=== PATIENT | male | born 1965 ===

== ENCOUNTER 2017-06-06 09:00 | Emergency (ER) | payer BC ==
--- NOTE | 2017-06-06 09:43 | ED PDOC ---
Arrival/HPI - General Time Seen by Provider: 06/06/17 09:06 Historian: Patient - History of Present Illness Narrative History of Present Illness (Text): 06/06/17 09:43 52 y/o male, pmh including htn/hyperlipidemia/renal stone, nkda, c/o lt. sided abdominal/flank pain started this morning. Cramping and stabbing pain, stated that this feels like his kidney stone pain, no urinary frequency or urgency, no hematuria or dysuria, no nausea or vomiting, no night sweat, no chest pain or shortness of breath, no palpitation, no rash, no other medical or psychological complaints. Past Medical History - Provider Review Nursing Documentation Reviewed: Yes - Past History Past History: Non-Contributing - Infectious Disease Hx of Infectious Diseases: None - Tetanus Immunization Tetanus Immunization: Unknown - Past Medical History Past Medical History: No Previous - Cardiac Hx IN: Yes Hx Hypertension: Yes - Pulmonary Other/Comment: Pt denies - Neurological Hx Migraine: Yes - HEENT Other/Comment: Pt denies - Renal Other/Comment: Pt denies - Endocrine/Metabolic Other/Comment: Pt denies - Hematological/Oncological Other/Comment: Pt denies - Integumentary Other/Comment: Pt denies - Musculoskeletal/Rheumatological Other/Comment: Pt denies - Gastrointestinal Hx Gastroesophageal Reflux: Yes - Genitourinary/Gynecological Other/Comment: Pt denies - Psychiatric Hx Depression: No Hx Emotional Abuse: No Hx Physical Abuse: No Hx Substance Use: No (former) - Past Surgical History Past Surgical History: No Previous - Surgical History Hx Cardiac Catheterization: Yes - Anesthesia Hx Anesthesia: Yes Hx Anesthesia Reactions: No Hx Malignant Hyperthermia: No - Suicidal Assessment Feels Threatened In Home Enviroment: No Family/Social History - Physician Review Nursing Documentation Reviewed: Yes Family/Social History: Unknown Family HX Smoking Status: Former Smoker Hx Alcohol Use: No Hx Substance Use: No (former) Hx Substance Use Treatment: No Allergies/Home Meds Allergies/Adverse Reactions: Allergies No Known Allergies Allergy (Verified 07/02/16 06:58) Home Medications: Home Meds Medication Instructions Recorded Confirmed Atorvastatin [Lipitor] 80 mg PO DAILY 02/10/14 06/06/17 Amiodarone [Cordarone] 200 mg PO DAILY 03/16/16 06/06/17 Aspirin [Aspirin Chewable] 81 mg PO DAILY 03/16/16 06/06/17 Clopidogrel [Plavix] 75 mg PO DAILY 03/16/16 06/06/17 Ramipril [Altace] 1.25 mg PO DAILY 03/16/16 06/06/17 methIMAzole [Tapazole] 10 mg PO DAILY 06/06/17 06/06/17 Review of Systems - Review of Systems Constitutional: absent: Fatigue, Fevers Eyes: absent: Vision Changes ENT: absent: Hearing Changes Respiratory: absent: SOB, Cough Cardiovascular: absent: Chest Pain, Palpitations Gastrointestinal: Abdominal Pain. absent: Nausea, Vomiting Musculoskeletal: Back Pain. absent: Arthralgias, Neck Pain, Joint Swelling, Myalgias Skin: absent: Rash, Pruritis Neurological: absent: Headache, Dizziness Physical Exam Vital Signs Reviewed: Yes Vital Signs Temp Pulse Resp BP Pulse Ox 06/06/17 16:08 98.8 F 90 18 147/80 99 06/06/17 14:41 98.7 F 87 18 139/82 99 06/06/17 11:51 76 18 135/73 100 06/06/17 09:46 98.0 F 66 19 146/87 99 Temperature: Afebrile Blood Pressure: Normal Pulse: Regular Respiratory Rate: Normal Appearance: Positive for: Well-Appearing, Non-Toxic Pain Distress: Moderate Mental Status: Positive for: Alert and Oriented X 3 - Systems Exam Head: Present: Atraumatic, Normocephalic Pupils: Present: PERRL Extroacular Muscles: Present: EOMI Conjunctiva: Present: Normal Mouth: Present: Moist Mucous Membranes Neck: Present: Normal Range of Motion Respiratory/Chest: Present: Clear to Auscultation, Good Air Exchange. No: Respiratory Distress, Accessory Muscle Use Cardiovascular: Present: Regular Rate and Rhythm, Normal S1, S2. No: Murmurs Abdomen: Present: Tenderness (lt. sided abdominal and mild left flank tenderness ), Normal Bowel Sounds, Other (no flank discoloration). No: Distention, Peritoneal Signs, Rebound, Guarding Back: Present: Normal Inspection Upper Extremity: Present: Normal Inspection. No: Cyanosis, Edema Lower Extremity: Present: Normal Inspection. No: Edema Neurological: Present: GCS=15, Speech Normal, Motor Func Grossly Intact, Gait Normal, Memory Normal Skin: Present: Warm, Dry, Normal Color. No: Rashes Psychiatric: Present: Alert, Oriented x 3, Normal Insight, Normal Concentration Medical Decision Making ED Course and Treatment: 06/06/17 10:04 -labs/ua -CT abdomen and pelvis -IVF/morphine/pepcid -observe and reassess 06/06/17 11:13 -Labs are non-significant except BUN 24, IVF ordered with normal creatine. -Urinalysis show +leukocyte and +nitrate with bacteria noted as well, no urinary symptoms, IV Rocephin ordered. -Pending CT 06/06/17 12:14 -CT show: There is a small 1 mm stone in the left distal ureter. There is mild left-sided hydronephrosis. There is no perinephric stranding. -Pt.'s pain controlled with the toradol, flomax and strainer with additional IVF ordered. -Urologist Dr. Mc paged for consult due to the +UA finding with the stone 1mm (which usually can easily be passed out on its own). 06/06/17 13:15 -I spoke to Dr. Mc about the case including labs and radiology result, he will come to the ER to evaluate the patient, pending for the Urologist final decision. 06/06/17 15:39 -Still pending on for Dr. Rebeka Mc's consult on the patient, notify Dr. Mc again. -Dr. Mc call back, stated that the patient can be discharged home and see him at the office at the [place] office tonight between 6pm -7pm with his cellphone given to the patient as well. [phone] -I checked the [facility] report, unable to locate this patient with the infos from this chart. -Discharge home with keflex, flomax, percocet for severe pain, strainer, stay hydrated, bed rest, go to the following address to see Dr. Blayne Mc as he is expecting you tonight between 6pm - 7pm, follow up with your own pmd within within 2 days, return to the ER for any new or worsening signs or symptoms. Dr. Blayne Mc cellphone: [phone] Address: [address] [place], [place] [address], [place] [address] - Lab Interpretations Lab Results: 06/06/17 10:30 06/06/17 10:30 Lab Results 06/06/17 10:30: Sodium 140, Potassium 3.9, Chloride 102, Carbon Dioxide 24, Anion Gap 18, BUN 24 H, Creatinine 1.0, Est GFR ( Amer) > 60, Est GFR ( Non-Af Amer) > 60, Random Glucose 121 H, Calcium 9.6, Total Bilirubin 1.0, AST 31, ALT 36, Alkaline Phosphatase 132, Total Protein 7.7, Albumin 4.7, Globulin 3.0, Albumin/Globulin Ratio 1.6, Lipase 36 06/06/17 10:30: WBC 11.0 D, RBC 5.27, Hgb 16.8, Hct 48.2, MCV 91.5, MCH 31.9, MCHC 34.9, RDW 13.3, Plt Count 254, MPV 11.3 H, Gran % 71.9 H, Lymph % (Auto) 21.1 L, [place] % (Auto) 6.1 H, Eos % (Auto) 0.4 L, Baso % (Auto) 0.5, Gran # 7.88 H, Lymph # 2.3, [place] # 0.7 H, Eos # 0.0, Baso # 0.06 06/06/17 10:00: Urine Color Light brown, Urine Appearance Turbid, Urine pH 6.5, Ur Specific [place] >= 1.030, Urine Protein >=300 H, Urine Glucose (UA) Negative , Urine Ketones Trace H, Urine Blood Large H, Urine Nitrate Positive H, Urine Bilirubin Small H, Urine Urobilinogen 2.0 H, Ur Leukocyte Esterase Trace H, Urine RBC 20 - 25, Urine WBC 0 - 2, Ur Epithelial Cells 0 - 2, Amorphous Sediment Small, Urine Bacteria Small I have reviewed the lab results: Yes Interpretation: Abnormal lab values (BUN 24, +UTI) - RAD Interpretation Radiology Orders: 06/06/17 10:00 ABD & PELVIS IV CONTRAST ONLY [CT] Stat PROCEDURE: CT Abdomen and Pelvis without intravenous contrast HISTORY: lt. sided abdominal/flank pain COMPARISON: 07/02/2016 TECHNIQUE: Without contrast. Contrast Dose: Radiation dose: Total exam DLP = 385 mGy-cm. This CT exam was performed using one or more of the following dose reduction techniques: Automated exposure control, adjustment of the mA and/or kV according to patient size, and/or use of iterative reconstruction technique. FINDINGS: LOWER THORAX: Unremarkable. LIVER: Unremarkable. No gross lesion or ductal dilatation. GALLBLADDER AND BILE DUCTS: Unremarkable. PANCREAS: Unremarkable. No gross lesion or ductal dilatation. SPLEEN: Unremarkable. ADRENALS: Unremarkable KIDNEYS AND URETERS: Small stone in the left distal ureter at the UVJ seen on image 152 series 2. There is mild left-sided hydronephrosis. There is no perinephric stranding. Calcifications are seen in the medullary pyramids of the right kidney. VASCULATURE: Unremarkable. No aortic aneurysm. BOWEL: Unremarkable. No obstruction. No gross mural thickening. APPENDIX: Unremarkable. Normal appendix. PERITONEUM: Unremarkable. No free fluid. No free air. LYMPH NODES: Unremarkable. No enlarged lymph nodes. BLADDER: Unremarkable. REPRODUCTIVE: Unremarkable. BONES: No acute fracture. OTHER FINDINGS: None. IMPRESSION: There is a small 1 mm stone in the left distal ureter. There is mild left- sided hydronephrosis. There is no perinephric stranding. Wide Area Network Engineer: Radiologist - Medication Orders Current Medication Orders: Sodium Chloride (Sodium Chloride 0.9%) 1,000 mls @ 100 mls/hr IV .Q10H KEVIN Discontinued Medications Famotidine (Pepcid) 20 mg IVP STAT STA Stop: 06/06/17 10:01 Last Admin: 06/06/17 10:37 Dose: 20 mg Hydromorphone HCl (Dilaudid) Confirm Administered Dose 1 mg .ROUTE .STK-MED ONE Stop: 06/06/17 11:11 Last Admin: 06/06/17 11:18 Dose: Sodium Chloride (Sodium Chloride 0.9%) 1,000 mls @ 999 mls/hr IV .Q1H1M STA Stop: 06/06/17 11:00 Last Admin: 06/06/17 10:37 Dose: 999 mls/hr Ceftriaxone Sodium (Rocephin 1 Gram Ivpb) 1 gm in 100 mls @ 200 mls/hr IVPB STAT STA PRN Reason: Protocol Stop: 06/06/17 11:40 Last Admin: 06/06/17 11:19 Dose: 200 mls/hr Sodium Chloride (Sodium Chloride 0.9%) 1,000 mls @ 999 mls/hr IV .Q1H1M STA Stop: 06/06/17 13:13 Last Admin: 06/06/17 12:19 Dose: 999 mls/hr Iohexol (Omnipaque 350 100 Ml) Confirm Administered Dose 350 mg .ROUTE .STK-MED ONE Stop: 06/06/17 11:14 Ketorolac Tromethamine (Toradol) 30 mg IVP STAT STA Stop: 06/06/17 11:12 Last Admin: 06/06/17 11:15 Dose: 30 mg Morphine Sulfate (Morphine) 4 mg IVP STAT STA Stop: 06/06/17 10:02 Last Admin: 06/06/17 10:37 Dose: 4 mg Oxycodone/Acetaminophen (Percocet 5/325 Mg Tab) 1 tab PO STAT STA Stop: 06/06/17 16:34 Tamsulosin HCl (Flomax) 0.4 mg PO STAT STA Stop: 06/06/17 12:14 Last Admin: 06/06/17 12:19 Dose: 0.4 mg - PA / TREE DRILLER / Resident Statement / has reviewed & agrees with the documentation as recorded. Disposition/Present on Arrival - Present on Arrival Any Indicators Present on Arrival: No History of DVT/PE: No History of Uncontrolled Diabetes: No Urinary Catheter: No History of Decub. Ulcer: No History Surgical Site Infection Following: None - Disposition Have Diagnosis and Disposition been Completed?: Yes Diagnosis: Ureterolithiasis Disposition: HOME/ ROUTINE Disposition Time: 12:16 Patient Plan: Discharge Patient Problems: Current Active Problems Problem Status Onset Ureterolithiasis Acute Condition: IMPROVED Additional Instructions: -Discharge home with keflex, flomax, percocet for severe pain, strainer, stay hydrated, bed rest, go to the following address to see Dr. Blayne Mc as he is expecting you tonight between 6pm - 7pm, follow up with your own pmd within within 2 days, return to the ER for any new or worsening signs or symptoms. Dr. Blayne Mc cellphone: [phone] Address: [address] [place] [address] Prescriptions: Cephalexin [cephalexin] 500 mg PO QID #28 cap oxyCODONE/Acetaminophen [Percocet 5/325 mg Tab] 1 tab PO QID PRN #8 tab PRN Reason: Other Tamsulosin [Flomax] 0.4 mg PO DAILY #7 cap Referrals: Blayne Mc MD [Staff Provider] - Follow up with primary Forms: WORK NOTE
[2017-06-06 09:45] VITALS: BMI 24.3
[2017-06-06] MEDS ORDERED: Sodium Chloride 0.9% 1,000 ML IV STA ×2 (10:00→12:13)
[2017-06-06] MEDS ORDERED: Morphine 4 mg/ml ISec IVP STA (10:01)
[2017-06-06 10:25] LABS: PH,URINE 6.5 (4.7-8.0); URINE BILIRUBIN SMALL (NEGATIVE); URINE BLOOD LARGE (NEGATIVE); URINE GLUCOSE (UA) NEGATIVE (NEGATIVE); URINE LEUKOCYTE ESTERASE TRACE Leu/uL (NEGATIVE); URINE NITRATE POSITIVE (NEGATIVE); URINE PROTEIN >=300 mg/dL (<30 mg/dL)
[2017-06-06 10:26] LABS: URINE APPEARANCE TURBID (CLEAR); URINE COLOR LIGHT BROWN (YELLOW)
[2017-06-06 10:38] LABS: URINE AMORPHOUS SEDIMENT SMALL; URINE BACTERIA SMALL (NEG); URINE EPITHELIAL CELLS 0 - 2 /hpf (0-5); URINE RBC 20 - 25 /hpf (0-2); URINE WBC 0 - 2 /hpf (0-6)
[2017-06-06 10:54] LABS: BASO # 0.06 K/mm3 (0.0-2.0); BASO % 0.5 % (0.0-3.0); EOS % 0.4 % (1.5-5.0); GRAN # 7.88 (1.4-6.5); GRAN % 71.9 % (50.0-68.0); HEMOGLOBIN 16.8 gm/dL (14.0-18.0); LYMPH # 2.3 (1.2-3.4); LYMPH % 21.1 % (22.0-35.0); MEAN CELL VOLUME 91.5 fL (80.0-105.0); MEAN CORPUSCULAR HEMOGLOBIN 31.9 pg (25.0-35.0); MEAN CORPUSCULAR HGB CONC 34.9 g/dl (31.0-37.0); MEAN PLATELET VOLUME 11.3 fl (7.0-11.0); MONO # 0.7 (0.1-0.6); MONO % 6.1 % (1.0-6.0); PLATELET COUNT 254 10^3/uL (120.0-450.0); RBC 5.27 10^6/uL (3.5-6.1); RED CELL DISTRIBUTION WIDTH 13.3 % (11.5-14.5)
[2017-06-06] MEDS ORDERED: HYDROmorphone 1 mg/ml ISec IVP STA (11:06)
[2017-06-06 11:09] LABS: ALB/GLOB RATIO 1.6 (1.1-1.8); ALBUMIN 4.7 g/dL (3.0-4.8); ALT/SGPT 36 U/L (7-56); AST/SGOT 31 U/L (15-59); BLOOD UREA NITROGEN 24 mg/dL (7-21); CALCIUM 9.6 mg/dL (8.4-10.5); GFR AFRICAN-AMERICAN > 60; GFR NON-AFRICAN AMERICAN > 60; LIPASE 36 U/L (23-300)
[2017-06-06] MEDS ORDERED: HYDROmorphone 1 mg/ml ISec ONE (11:10)
[2017-06-06] MEDS ORDERED: cefTRIAXone 1 gm 1 GM/100 ML BAG IVPB STA (11:11)
[2017-06-06] MEDS ORDERED: Iohexol 350 MG/100 ML VIAL ONE (11:13)
[2017-06-06 11:51] VITALS: RESP 18
--- NOTE | 2017-06-06 12:07 | CT ---
PROCEDURE: CT Abdomen and Pelvis without intravenous contrast HISTORY: lt. sided abdominal/flank pain COMPARISON: 07/02/2016 TECHNIQUE: Without contrast. Contrast Dose: Radiation dose: Total exam DLP = 385 mGy-cm. This CT exam was performed using one or more of the following dose reduction techniques: Automated exposure control, adjustment of the mA and/or kV according to patient size, and/or use of iterative reconstruction technique. FINDINGS: LOWER THORAX: Unremarkable. LIVER: Unremarkable. No gross lesion or ductal dilatation. GALLBLADDER AND BILE DUCTS: Unremarkable. PANCREAS: Unremarkable. No gross lesion or ductal dilatation. SPLEEN: Unremarkable. ADRENALS: Unremarkable KIDNEYS AND URETERS: Small stone in the left distal ureter at the UVJ seen on image 152 series 2. There is mild left-sided hydronephrosis. There is no perinephric stranding. Calcifications are seen in the medullary pyramids of the right kidney. VASCULATURE: Unremarkable. No aortic aneurysm. BOWEL: Unremarkable. No obstruction. No gross mural thickening. APPENDIX: Unremarkable. Normal appendix. PERITONEUM: Unremarkable. No free fluid. No free air. LYMPH NODES: Unremarkable. No enlarged lymph nodes. BLADDER: Unremarkable. REPRODUCTIVE: Unremarkable. BONES: No acute fracture. OTHER FINDINGS: None. IMPRESSION: There is a small 1 mm stone in the left distal ureter. There is mild left-sided hydronephrosis. There is no perinephric stranding.
--- NOTE | 2017-06-06 12:29 | CARD ---
APPROVED REPORT EKG Measurement Heart [id number] <Conclusion> Normal sinus rhythm Anteroseptal infarct, age undetermined T wave abnormality, consider lateral ischemia Abnormal ECG
[2017-06-06 16:09] VITALS: BP 147/80; PULSE 90; TEMP 98.8
[2017-06-06] MEDS ORDERED: Oxycodone/Acetaminophen 5/325 mg Tab PO STA (16:33)
[2017-06-06] MEDS ORDERED: Sodium Chloride 0.9% 1,000 ML IV SCH (16:45)
[2017-06-06 16:54] VITALS: O2SAT 98
== END 2017-06-06 16:54 | disposition home or self-care (01) ==
LOC: ED 09:00
DX: N20.1 Calculus of ureter (principal); E78.5 Hyperlipidemia, unspecified; I10 Essential (primary) hypertension
CPT/HCPCS: 74177; 80053; 81001; 83690; 85025; 87086; 93005; 96361; 96365; 96375; 99285; J0696; J1885; J2270; J7040; Q9967